=== PATIENT | male | born 1945 | race Hispanic/Latino ===

== ENCOUNTER 2021-09-08 12:46 | Outpatient (CLI) | payer MEDICARE ==
--- NOTE | 2021-09-08 14:47 | Cat Scan Report ---
CT HEAD WITHOUT CONTRAST INDICATION / CLINICAL INFORMATION: FREQUENT FALLS. TECHNIQUE: Axial imaging performed from the skull apex through the skull base without the use of cont rast. Sagittal and coronal reformatted images. All CT scans at this location are performed using CT dose reduction for ALARA by means of automated exposure control. COMPARISON: None available FINDINGS: CEREBRAL PARENCHYMA: No acute parenchymal abnormality. Mild cortical volume loss and mild chronic isc hemic changes in the white matter are noted. 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 HEMORRHAGE: None. EXTRA-AXIAL SPACES: Normal in size and morphology for the patient's age. VENTRICULAR SYSTEM: Normal in size and morphology for the patient's age. MIDLINE SHIFT OR HERNIATION: None. CEREBELLUM / BRAINSTEM: No significant abnormality. CALVARIUM: No significant abnormality. ORBITS: Normal as visualized. PARANASAL SINUSES / MASTOID AIR CELLS: Normal as visualized. SOFT TISSUES of HEAD: There is mild soft tissue swelling in the right parietal region. ADDITIONAL FINDINGS: None. IMPRESSION: No acute intracranial abnormality. Volume loss, chronic white matter changes and small chronic cortical infarct in the right occipital l obe. Right parietal soft tissue swelling. Signer Name: Richard Kong Jr, MD Signed: 09/08/2021 2:42 PM Workstation Name: [id number]
== END 2021-09-08 12:47 | disposition home or self-care (01) ==
LOC: CT 12:46
PROVIDERS: ATTEND Internal Medicine
DX: R90.82 White matter disease, unspecified (principal); R51.9 Headache, unspecified; Z91.81 History of falling
CPT/HCPCS: 70450